=== PATIENT | male | born 1960 ===

== ENCOUNTER → 2017-11-23 15:46 | Outpatient (CLI) | payer BC ==
[2014-11-14 02:30] VITALS: BMI 37.2
[~2017-11-23 15:46] MED LIST: CIPRO500 MG PO; CLARITIN10 MG/TAB PO; CORGARD20 MG PO; CRESTOR5 MG PO; FLAGYL 500500 MG/100 PO; LEVAQUIN500 MG PO; LOMOTIL TABLET1 TAB PO; PRILOSEC20 MG PO; XIFAXAN200 MG PO
[2017-11-23 16:10] LABS: LDL-HDL RATIO 1.6 ratio (1.5-3.5)
== END | disposition home or self-care (01) ==
LOC: D.LABREF 15:46
PROVIDERS: Student in an Organized Health Care Education/Training Program
DX: Z00.00 Encounter for general adult medical examination without abnormal findings (principal)

== ENCOUNTER → 2018-08-09 11:11 | Outpatient (CLI) | payer BC ==
[2014-11-14 02:30] VITALS: BMI 37.2
== END | disposition home or self-care (01) ==
LOC: D.LABREF 11:11
PROVIDERS: ATTEND Surgery
DX: L72.3 Sebaceous cyst (principal)